=== PATIENT | female | born 1970 | race American Indian/Alaskan Native ===

== ENCOUNTER 2017-01-16 11:51 | Outpatient (CLI) | payer OTHER ==
--- NOTE | 2017-01-16 15:37 | Mammography Report ---
BILATERAL DIGITAL SCREENING MAMMOGRAM with CAD: 01/16/17 11:51:00 CLINICAL: Routine screening. COMPARISON:07/17/15 and 06/08/14 FINDINGS: There are scattered areas of fibroglandular density. No mass, architectural distortion or suspicious calcifications. IMPRESSION: No mammographic evidence of malignancy. BI-RADS CATEGORY: 2 -- Benign RECOMMENDATION: Routine mammographic screening in one year. COMMENT: Patient follow-up letters are generated by our [employer] application.
== END 2017-01-16 11:52 | disposition home or self-care (01) ==
LOC: MAMMO 11:51
PROVIDERS: ATTEND Obstetrics & Gynecology
DX: Z12.31 Encounter for screening mammogram for malignant neoplasm of breast (principal)
CPT/HCPCS: 77067; G0202

== ENCOUNTER 2019-04-05 06:07 | Observation (INO) | payer BC, OTHER ==
[2019-04-01 11:54] LABS: Basophils % (Auto) 0.6 % (0.0-1.8); Eosinophils # (Auto) 0.2 K/mm3 (0.0-0.4); Eosinophils % (Auto) 2.6 % (0.0-4.3); Hematocrit 41.3 % (30.3-42.9); Hemoglobin 13.6 gm/dl (10.1-14.3); Lymphocytes # (Auto) 3.4 K/mm3 (1.2-5.4); Lymphocytes % (Auto) 45.3 % (13.4-35.0); Mean Corpuscular HGB Conc 33 % (30-34); Mean Corpuscular Volume 85 fl (79-97); Monocytes # (Auto) 0.4 K/mm3 (0.0-0.8); Monocytes % (Auto) 5.8 % (0.0-7.3); Platelet Count 277 K/mm3 (140-440); Red Blood Count 4.86 M/mm3 (3.65-5.03); Red Cell Distribution Width 13.5 % (13.2-15.2)
--- NOTE | 2019-04-01 12:41 | Anesthesia Consultation ---
Anesthesia Consult and Med Hx Date of service: 04/01/19 - Airway Anesthetic Teeth Evaluation: Good ROM Head & Neck: Adequate Mental/Hyoid Distance: Adequate Mallampati Class: Class II Intubation Access Assessment: Good - Pulmonary Exam CTA: Yes - Cardiac Exam Cardiac Exam: RRR - Pre-Operative Health Status ASA Pre-Surgery Classification: ASA2 Proposed Anesthetic Plan: General Nerve Block: TAP Block - Pulmonary Hx Smoking: No - Central Nervous System Hx Psychiatric Problems: No - Other Systems Hx Alcohol Use: Yes (Occas) Hx Cancer: No
--- NOTE | 2019-04-04 10:32 | History and Physical Report ---
History of Present Illness Date of examination: 04/01/19 History of present illness: States she has intermittent pelvic pain and pressure along with painful sex. She presents now for definitive therapy in the form of hysterectomy with removal of both fallopian tubes and ovaries. Past History : 1 Living Children: 0 Elect. 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 of genital herpes: yes Partner hx. of genital herpes: no Rash/viral illness since LMP: no Hx of STD: HSV Active Medications (reviewed today): MIRENA (52 MG) 20 MCG/24HR INTRAUTERINE INTRAUTERINE DEVICE (LEVONORGESTREL) Current Allergies (reviewed today): No known allergies Past Medical History: history of abnormal EKG cleared by her systems mgr Dr. Lopez (03/2019) Past Surgical History: Reviewed history from 08/30/2010 and no changes required: positive Cholecystectomy Myomectomy Appendectomy Family History Summary: Reviewed history Last on 12/24/2018 and no changes required:04/04/2019 Other family member - Has No Family History of Biliary Tract Cancer - Entered On: 01/16/2017 Other family member - Has No Family History of Breast Cancer - Entered On: 01/16/2017 Other family member - Has No Family History of Brain Cancer - Entered On: 01/16/2017 Other family member - Has No Family History of Colon Cancer - Entered On: 01/16/2017 Other family member - Has No Family History of DVT/PE on OCP - Entered On: 01/16/2017 Other family member - Has No Family History of Kidney/Urinary Tract Cancer - Entered On: 01/16/2017 Other family member - Has No Family History of Ovarvian Cancer - Entered On: 01/16/2017 Other family member - Has No Family History of Pancreatic Cancer - Entered On: 01/16/2017 Other family member - Has No Family History of Stomach Cancer - Entered On: 01/16/2017 Other family member - Has No Family History of Small Bowel Cancer - Entered On: 01/16/2017 Other family member - Has No Family History of Uterine Cancer - Entered On: 01/16/2017 Father (biol.) - Has Family History of Lung Cancer - Entered On: 11/05/2018 General Comments - FH: none No Family History of Breast Cancer No Family History of Colon Cancer No Family History of Ovarvian Cancer No Family History of DVT/PE on OCP Social History: Reviewed history from 01/02/2017 and no changes required: Patient is single Smoking History: Patient has never smoked. Risk Factors: Smoked Tobacco Use: Never smoker Smokeless Tobacco Use: Never Passive smoke exposure: no Drug use: no HIV high-risk behavior: no Alcohol use: yes Exercise: yes Seatbelt use: 100 % PAP Smear History: Date of Last PAP Smear: 11/09/2018 Mammogram History: Date of Last Mammogram: 04/02/2018 Previous Tobacco Use: Signed On - 12/24/2018 Smoked Tobacco Use: Never smoker Smokeless Tobacco Use: Never Passive smoke exposure: no Drug use: no HIV high-risk behavior: no Caffeine use: <1 drinks per day Previous Alcohol Use: Signed On - 12/24/2018 Alcohol use: yes Type: occ Drinks per day: social Exercise: yes Times per week: 3 Type of Exercise: kick boxing Seatbelt use: 100 % PAP Smear History: Date of Last PAP Smear: 11/09/2018 Mammogram History: Date of Last Mammogram: 04/02/2018 Review of Systems General Denies fever, chills, sweats, anorexia, fatigue, weakness, malaise, weight loss and sleep disorder. Complains of pelvic pain, painful sex and painful periods. Denies vaginal discharge, incontinence, dysuria, hematuria, urinary frequency, amenorrhea, menorrhagia, abnormal vaginal bleeding, genital sores, decreased libido, , urinary urgency, hot flashes, vaginal dryness, vaginal itching and vaginal odor. CV Denies chest pains, palpitations, syncope, dyspnea on exertion, orthopnea, PND and peripheral edema. Resp Denies cough, dyspnea at rest, excessive sputum, hemoptysis, wheezing and pleurisy. GI Denies nausea, vomiting, diarrhea, constipation, change in bowel habits, abdominal pain, melena, hematochezia, jaundice, gas/bloating, indigestion/heartburn, dysphagia and odynophagia. Endo Denies cold intolerance, heat intolerance, polydipsia, polyphagia, polyuria and unusual weight change. Breast Denies left breast lump, right breast lump, nipple discharge, bloody discharge from nipple, breast pain, abnormal mammogram and breast enlargement. MS Denies back pain, joint pain, joint swelling, muscle cramps, muscle weakness, stiffness, arthritis, sciatica, restless legs, leg pain at night and leg pain with exertion. Derm Denies rash, itching, dryness and suspicious lesions. Neuro Denies paralysis, paresthesias, headache, seizures, tremors, vertigo, tr ansient blindness, frequent falls, frequent headaches and difficulty walking. Psych Denies depression, anxiety, irritability and mood swings. Eyes Denies blurring, diplopia, irritation, discharge, vision loss, eye pain and photophobia. ENT Denies earache, ear discharge, tinnitus, decreased hearing, nasal congestion, nosebleeds, sore throat and hoarseness. Allergy Denies urticaria, allergic rash, hay fever and recurrent infections. Heme Denies abnormal bruising, bleeding and enlarged lymph nodes. Physical Exam Appearance: well developed, well nourished, no acute distress Other Exams Lungs: no rales, rhonchi, or wheezes Heart: S1, S2, no murmur, rub, or gallop Abdomen: soft, non-tender, no masses, Genitourinary Exam Pelvis: deferred until EUA Impression & Recommendations: Problem # 1: Pelvic and perineal pain (ICD-789.00) (NAM11-C61.2) Risks, benefits, complications, consequences and alternatives for these procedures were discussed with patient, including but not limited to the risks of bleeding, infection, injury to bowel, bladder, ureters or major vascular injury. It was extensively explained to her that her pain may persist, recur or change in nature due to the difficulty with diagnosis chronic pelvic pain or development of adhesions. She declined other treatment options at this time. Questions were encouraged and answered. Consents were reviewed and signed. Pre- op instructions given. Patient voiced understanding and desires to proceed with the above procedures Problem # 2: Fibroids of uterus; Intramural (ICD-218.1) (JUE34-H22.1) Her updated medication list for this problem includes: Mirena (52 Mg) 20 Mcg/24hr Intrauterine Intrauterine Device (Levonorgestrel) ..... Insert with next Orders: Ofc Vst Est 42925 ([id number]) Diagnosis explained to patient . Discussed with patient various medical, surgical and radiological therapies common for treatment including, but not limited to, myomectomy, hysterectomy and uterine artery embolization. Discussed risks and benefits of laparotomy, laparoscopy, vaginal and robotic a ssisted approaches for hysterectomies. Patient desires definitive treatment in the form of robot assisted laparoscopic total hysterectomy with removal of both fallopian tubes and ovaries The risks and alternatives for this surgery were reviewed with the patient. She was informed of the risks of the surgery including, but not limited to, pain, infection, bleeding possibly heavy enough to require a blood transfusion with associated risks of infections (hepatitis and HIV) and transfusion reactions, possible damage to bowel, bladder or ureter(s). Patient understands that this surgery with make her sterile. Indications to abort a robotic/laparoscopic procedure and perform an open procedure were explained. Patient understands if her ovaries are removed she will become menopausal. Questions answered. Consent reviewed and signed The patient was instructed/informed the following: The normal length of hospital stay for this procedure. Nothing to eat or drink after midnight the evening prior to surgery. Clear liquids the day before surgery. Pre-op instruction sheets given. Wound care instructions given. Medications and Allergies Allergies Allergy/AdvReac Type Severity Reaction Status Date / Time No Known Allergies Allergy Unverified 03/28/19 17:46 Home Medications Medication Instructions Recorded Confirmed Last Taken Type No Known Home Medications [No 03/28/19 03/28/19 Unknown History Reported Home Medications] Active Meds: Active Medications Lactated Ringer's (Lactated Ringers) 1,000 mls @ 100 mls/hr IV DIRECT SHELBY Cefazolin Sodium (Ancef/Sterile Water 2 Gm/20 Ml) 2 gm in 20 mls @ 80 mls/hr IV PREOP NR; Protocol Exam Vital Signs Temp Pulse Resp BP Pulse Ox 97.3 F L 82 20 130/92 97 04/01/19 11:37 04/01/19 11:37 04/01/19 11:37 04/01/19 11:37 04/01/19 11:37 Results - Labs 04/01/19 11:32 Assessment and Plan - Patient Problems (1) Pelvic pain in female Status: Acute (2) Dyspareunia in female Status: Acute (3) Dysmenorrhea Status: Acute (4) Fibroid, uterine Status: Acute
[~2019-04-05 06:07] MED LIST: ANCEF/STERILE WATER 2 GM/20 ML 2 GM/20 ML SYRINGE IV NR; LACTATED RINGERS 1,000 ML IV SCH; NEURONTIN PO NR; SUBLIMAZE IV ONE; SUBLIMAZE IV PRN; VERSED IV NR
[2019-04-05] MEDS ORDERED: NACL BACTERIOSTATIC INFILTRATI ONE (06:18)
[2019-04-05] MEDS: LACTATED RINGERS 1,000 ML IV SCH ×2 (06:50→23:43)
[2019-04-05] MEDS ORDERED: DECADRON ONE ×2 (07:23→08:24)
[2019-04-05] MEDS ORDERED: MARCAINE-EPI 0.25%-1:200,000 INFILTRATI ONE (07:23)
[2019-04-05] MEDS ORDERED: NEOSPORIN GU IR ONE ×2 (07:25→08:47)
[2019-04-05] MEDS ORDERED: DIPRIVAN 10 MG/ML IV ONE (07:28)
[2019-04-05] MEDS ORDERED: DILAUDID ONE (07:28)
[2019-04-05] MEDS ORDERED: XYLOCAINE MPF 2% ONE (07:29)
[2019-04-05] MEDS ORDERED: ZEMURON IV ONE (07:30)
[2019-04-05] MEDS ORDERED: DILAUDID IV PRN (07:39)
--- NOTE | 2019-04-05 07:39 | Anesthesia Day of Surgery ---
Anesthesia Day of Surgery - Day of Surgery Patient Examined: Yes Patient H&P Reviewed: Yes Patient is NPO: Yes
[2019-04-05] MEDS ORDERED: CALCIUM CHLORIDE IV ONE ×2 (07:45→08:49)
[2019-04-05] MEDS ORDERED: RECOTHROM TP ONE ×2 (07:46→08:48)
[2019-04-05] MEDS ORDERED: ZOFRAN ONE (08:24)
[2019-04-05] MEDS ORDERED: PHENYLEPHRINE/NS Syringe 1,000 MCG/10 ML IV ONE ×2 (08:24→10:25)
[2019-04-05] MEDS ORDERED: NACL 0.9% IR ONE (08:48)
[2019-04-05] MEDS ORDERED: Vasostrict ONE (08:58)
[2019-04-05] MEDS ORDERED: NACL 0.9% 100 ML ONE (08:58)
[2019-04-05] MEDS ORDERED: METHYLENE BLUE ONE (09:29)
[2019-04-05] MEDS ORDERED: NACL 0.9% IV ONE (09:40)
[2019-04-05] MEDS ORDERED: Vasostrict IM ONE (09:40)
[2019-04-05] MEDS ORDERED: METHYLENE BLUE IRRIGATION ONE (09:41)
[2019-04-05] MEDS ORDERED: ROBINUL ONE (10:25)
[2019-04-05] MEDS ORDERED: BLOXIVERZ ONE (10:25)
--- NOTE | 2019-04-05 11:00 | Operative Report ---
Operative Report Operative Report: Date: 04/05/2019 Preoperative diagnosis: 1. Pelvic pain 2. Dysmenorrhea 3. Dyspareunia 4. Uterine fibroids Postoperative diagnosis: 1. Pelvic pain 2. Dysmenorrhea 3. Dyspareunia 4. Uterine fibroids 5. Endometriosis 6. Pelvic Adhesions Procedure: 1. Robotic-assisted laparoscopic total hysterectomy with bilateral salpingo-oophorectomy and lysis of adhesions Surgeon: Sandra Medel MD Can Intake Worker: Magalis lA, certified ethical hacker Anesthesiologist: Dr. Roz Woo Anesthesia: General endotracheal anesthesia EBL: Approximately 100 mL Findings: Exam under anesthesia was unremarkable. Uterus is sounded to 12 cm. Large pedunculated fundal fibroid. Small focus of endometriosis noted on the left posterior pelvic sidewall. Grossly normal ovaries and tubes. Omental adhesions to the anterior abdominal wall. Procedure: Patient was taken to the OR and placed in the supine position. General anesthesia was induced and an oral gastric tube was placed. Her neck and head were placed on foam support. Foam eye protection with goggles were secured in place. Then foam face protection was placed and secured. Foam shoulder pads were then positioned on her shoulders for Trendelenburg positioning. She was then placed in dorsolithotomy position. Exam under anesthesia as above. The abdomen and vagina were then prepped and draped in the usual sterile fashion. Timeout was performed. A Cesar catheter was inserted into the bladder with drainage of clear yellow urine. The operative speculum was introduced into the vagina and the anterior lip of the cervix was grasped with single-toothed tenaculum. The uterus was sounded to 12 cm. The cervix was progressively dilated to allow the large V care uterine manipulator. The bulb of the manipulator was inflated and the speculum and tenaculum were removed. The cup of the manipulator was placed around the cervix and the blue occluder of the manipulator was properly positioned in the vagina. A laparotomy sponge that was saturated with a solution of polymyxin and saline was placed in the vagina to ensure pneumoperitoneum. Sterile gloves were placed and attention was turned to the abdomen. A 12 mm vertical supraumbilical incision was made approximately 10 cm superior to the elevated fundus of the uterus. A 10 mm trocar with the laparoscope and camera attached was introduced through this incision under direct visualization. The abdomen was insufflated. No obvious bowel, bladder, ureteral, or major vascular injury was noted. The patient was then placed in steep Trendelenburg position and the following trochars were placed under direct visualization: 8 mm robotic trochars were placed through incisions made in the bilateral midclavicular lower abdominal region approximately 10 cm lateral and approximately 2 cm below the midline incision, and a 5 mm trocar was placed through an incision made in the right lower lateral pelvis approximately 2 cm superior to the iliac crest. The 10 mm laparoscope was then replaced by a 5 mm laparoscope that was placed through the 5 millimeter lateral trocar. The 12 mm trocar was then removed in the Manuel Goldman fascial closure device was placed through the incision and a 0 Vicryl was placed through the fascia. Once the suture was secured the 12 mm trocar was reintroduced. Once the trochars were in the appropriate positions, the the da Sarah robot system was engaged. The EndoShears and bipolar device was placed through the 8 mm trochars and positioned then attention was turned to the console. The uterus was elevated. Then the utero-ovarian ligaments were clamped. cauterized and incised bilateral ly using 30 W of energy. Then the round ligaments were clamped, cauterized and incised bilaterally. The anterior leaf of the broad ligament was elevated and careful blunt and sharp dissection the bladder flap was created and dissected away from the lower uterine segment and cervix. The posterior leaf of the broad ligament was dissected away from the uterine vessels. To improve visualization the decision was made to remove the fundal fibroid. 15 mL of Pitressin, 20 units in 100 mL's of normal saline, was infused into the base of the fibroid. Fibroid was then excised. Using a V LOC through the fibroid it was attached to the anterior abdominal wall away from the operative field. 120 mL's of methylene blue and saline infused into the bladder to verify its location. The bladder was further dissected away from the lower uterine segment and cervix. Once location was verified and no injury was noted to saline with methylene blue was released into the Cesar. The cup of the uterine manipulator was palpated both anteriorly and posteriorly. Course of the ureters was visualized and was confirmed to be away from the operative field. The uterine vessels were then clamped and cauterized bilaterally. Blanching of the uterus was then noted. Attention was again turned to the anterior lower uterine segment and the bladder was confirmed to be away from the operative field. Then attention was turned again to the posterior where the cup of the manipulator was palpated and a colpotomy was performed down to the cup. The incision was extended in the lateral position the uterine vessels that were again clamped and cauterized and incised. Continuing along the cup of the manipulator in a circumferential manner the colpotomy was completed. The uterus and cervix were then removed through the vaginal incision. The pelvis was irrigated with warm normal saline. The fibroid was then removed along with the suture through the vagina. Then attention was turned to the adnexa. Once the course of the ureters were noted to be away from the operative field, the right tube and ovary were elevated and the infundibulopelvic ligament was clamped cauterized and incised. It was released and removed through the vagina. The same procedure was performed on the left tube and ovary. The pelvis was again irrigated with warm normal saline. Hemostasis was noted. A moist laparotomy sponge was replaced in the vagina to maintain pneumoperitoneum. The vagina cuff was reapproximated using V LOC 180 suture in a simple running stitch. Then a J stitch was performed to secure the suture. Again the pelvis was copiously irrigated with polymixin in warm normal saline. The laparotomy sponge was removed from the vagina. No bowel, bladder, ureteral or major vascular injury was noted. Once hemostasis was noted, platelet rich plasma was applied to the operative field to ensure hemostasis. Then platelet poor plasma was applied to the operative field to decrease formation of adhesions. Again hemostasis was noted. Then the instruments were removed, the robot was disengaged. The 10 mm trocar was removed and the fascia was ligated with the 0 Vicryl suture that was placed at the beginning of the procedure. The patient was taken out of Trendelenburg position, the abdomen was desufflated, the remaining trochars were removed. Incisions were reapproximated using 4-0 Monocryl in a subcuticular manner. Incisions were infused with half percent Marcaine without epinephrine and Surgiseal was placed over the incisions. The vagina was then inspected, no bleeding was noted and clear yellow urine was draining into the Cesar bag from the bladder at the end of the procedure. Patient was taken to recovery room in stable condition.
[2019-04-05] MEDS ORDERED: TORADOL ONE (11:12)
[2019-04-05] MEDS: TORADOL IV NR (11:20)
[2019-04-05] MEDS ORDERED: TYLENOL PR PRN (12:08)
[2019-04-05] MEDS ORDERED: ZOFRAN IV PRN (12:08)
[2019-04-05] MEDS ORDERED: ZOFRAN ODT PO PRN (12:08)
[2019-04-05] MEDS ORDERED: MORPHINE IV PRN (12:08)
[2019-04-05] MEDS ORDERED: REGLAN PO PRN (12:08)
[2019-04-05] MEDS ORDERED: REGLAN IV PRN (12:08)
--- NOTE | 2019-04-05 12:56 | Post Anesthesia Evaluation ---
- Post Anesthesia Evaluation Patient Participated: Yes Airway Patent: Yes Stable Respiratory Function: Yes Nausea/Vomiting: No Temp > 96.8F: Yes Pain Manageable: Yes Adequeate Hydration: Yes Anesthesia Complications: No
[2019-04-05] MEDS: MORPHINE IV PRN ×2 (15:20→20:04)
[2019-04-05] MEDS: ANCEF/NS 1 GM/50 ML 1 GM/50 ML BAG IV SCH (16:20)
[2019-04-05] MEDS: TORADOL IV SCH ×2 (17:25→23:50)
--- NOTE | 2019-04-05 21:00 | Progress Note ---
Assessment and Plan Operative findings and procedure explained. Elevated BP and heart rate noted. According to RN patient was in pain with initial VSs. She was given MSO4 as ordered. She had 4 visitors in her room when the last set of VSs were taken. - Patient Problems (1) Pelvic pain in female Current Visit: No Status: Acute (2) Dyspareunia in female Current Visit: No Status: Acute (3) Dysmenorrhea Current Visit: No Status: Acute (4) Fibroid, uterine Current Visit: No Status: Acute Subjective Date of service: 04/05/19 Patient Reports: Positive: still having pain, tolerating liquids well, afebrile Objective Vital Signs - 12hr 04/05/19 04/05/19 04/05/19 10:40 10:45 10:50 Temperature 97.6 F Pulse Rate 90 90 92 H Respiratory 17 17 19 Rate Blood Pressure 138/88 140/92 143/98 Blood Pressure [Left] O2 Sat by Pulse 98 98 98 Oximetry 04/05/19 04/05/19 04/05/19 10:55 11:10 11:20 Temperature 97.4 F L Pulse Rate 93 H 93 H Respiratory 18 17 15 Rate Blood Pressure 147/96 147/96 Blood Pressure [Left] O2 Sat by Pulse 99 98 Oximetry 04/05/19 04/05/19 04/05/19 11:24 11:40 11:49 Temperature 97.7 F Pulse Rate 96 H 98 H 99 H Respiratory 17 16 Rate Blood Pressure 145/95 167/104 Blood Pressure 167/104 [Left] O2 Sat by Pulse 98 100 100 Oximetry 04/05/19 04/05/19 04/05/19 12:39 16:08 20:38 Temperature 98.1 F 97.7 F 98.4 F Pulse Rate 102 H 114 H 114 H Respiratory 18 18 20 Rate Blood Pressure 154/104 148/96 155/100 Blood Pressure [Left] O2 Sat by Pulse 98 97 96 Oximetry - General physical appearance well developed, well nourished - Respiratory normal expansion, normal respiratory effort, clear to auscultation - Abdomen soft, bowel sounds normal - Neurologic normal coordination, normal sensation - Psychiatric oriented to time, oriented to person, oriented to place, speech is normal, memory intact - Labs 04/01/19 11:32
[2019-04-05 21:34] LABS: Hematocrit 39.7 % (30.3-42.9)
--- NOTE | 2019-04-05 22:16 | Event Note ---
Date: 04/05/19 EKG and H/H noted, patient informed, denies CP and SOB. Has good UO. RN instrd to recheck VSS ~1h and call to
--- NOTE | 2019-04-05 23:46 | Event Note ---
Date: 04/05/19 BP decreased however still with tachycardia uncertain etiology, states she experienced same last year. Again no complaints, UO good, clear yellow urine, no vaginal bleeding. hgb 13 at 2100. Will consult hospitalist and transfer to telemetry. Plan of care discussed with patient, she voiced understanding.
--- NOTE | 2019-04-06 00:22 | Consultation ---
<RUTH CARR - Last Filed: 04/06/19 00:18> History of Present Illness - Reason for Consult Consult date: 04/06/19 Medical management for elevated heart rate Requesting physician: BALAJI GARCES - History of Present Illness Pt is a 49 year old female with no prior medical history except for uterine fibroid who was admitted for an elective total hysterectomy today. Pt developed elevated heart rate after the procedure and hospitalist is consulted for evaluation. Pt was seen in room, she was A&Ox4, able to provide medical history, she reports a h/o elevated HR and chest pressure for which she saw a quantitative equity head 1 year ago and had a stress test which was negative, she is not currently taking any medications at home, she denies family history of heart disease, denies smoking history. Past History Past Medical History: other (uterine fibroid) Past Surgical History: hysterectomy (done today) Social history: no significant social history Family history: no significant family history Medications and Allergies Allergies Allergy/AdvReac Type Severity Reaction Status Date / Time No Known Allergies Allergy Unverified 03/28/19 17:46 Home Medications Medication Instructions Recorded Confirmed Last Taken Type No Known Home Medications [No 03/28/19 03/28/19 Unknown History Reported Home Medications] Active Meds: Active Medications Acetaminophen (Tylenol) 650 mg PO Q6H SHELBY Stop: 04/06/19 08:01 Acetaminophen (Tylenol) 650 mg CA Q6H PRN PRN Reason: Pain MILD(1-3)/Fever >100.5/WHELAN Lactated Ringer's (Lactated Ringers) 1,000 mls @ 100 mls/hr IV DIRECT SHELBY Last Admin: 04/05/19 23:43 Dose: 100 mls/hr Documented by: Cefazolin Sodium (Ancef/Ns 1 Gm/50 Ml) 1 gm in 50 mls @ 100 mls/hr IV Q8H SHELBY; Protocol Stop: 04/06/19 00:29 Last Admin: 04/05/19 16:20 Dose: 100 mls/hr Documented by: Ketorolac Tromethamine (Toradol) 30 mg IV ONCE NR Stop: 04/10/19 12:14 Last Admin: 04/05/19 11:20 Dose: 30 mg Documented by: Ketorolac Tromethamine (Toradol) 30 mg IV Q6HR SHELBY Stop: 04/06/19 12:01 Last Admin: 04/05/19 23:50 Dose: 30 mg Documented by: Metoclopramide HCl (Reglan) 10 mg IV Q6H PRN PRN Reason: Nausea And Vomiting Metoclopramide HCl (Reglan) 10 mg PO Q6H PRN PRN Reason: Nausea And Vomiting Morphine Sulfate (Morphine) 2 mg IV Q4H PRN PRN Reason: Pain, Moderate (4-6) Morphine Sulfate (Morphine) 4 mg IV Q4H PRN PRN Reason: Pain , Severe (7-10) Last Admin: 04/05/19 20:04 Dose: 4 mg Documented by: Ondansetron HCl (Zofran) 4 mg IV Q8H PRN PRN Reason: N/V unrelieved by Reglan Ondansetron HCl (Zofran Odt) 4 mg PO Q8H PRN PRN Reason: Nausea And Vomiting Oxycodone/Acetaminophen (Percocet 5/325) 2 tab PO Q6H PRN PRN Reason: Pain, Moderate (4-6) Pantoprazole Sodium (Protonix) 40 mg IV QDAY [facility] Review of Systems Genitourinary Female: other (mild surgical site pain) Exam - Constitutional Vitals: Temp Pulse Resp BP Pulse Ox 98.3 F 111 H 18 122/79 93 04/05/19 23:08 04/05/19 23:08 04/05/19 23:08 04/05/19 23:08 04/05/19 23:08 General appearance: Present: no acute distress - EENT Eyes: Present: EOM intact ENT: hearing intact - Neck Neck: Present: normal ROM - Respiratory Respiratory effort: normal Respiratory: bilateral: CTA - Cardiovascular Rhythm: regular Heart Sounds: Present: S1 & S2 - Extremities Extremities: no ischemia, No edema Peripheral Pulses: within normal limits - Abdominal General gastrointestinal: Present: tender, non-distended Female genitourinary: Present: deferred - Rectal Rectal Exam: deferred - Integumentary Integumentary: Present: warm, dry - Musculoskeletal Musculoskeletal: strength equal bilaterally - Psychiatric Psychiatric: cooperative - Neurologic Neurologic: moves all extremities Results - Labs CBC & Chem 7: 04/05/19 21:18 Assessment and Plan 1. s/p Robotic assisted total hysterectomy POD#0 2. H/o uterine fibroid 3. H/o elevated heart rate 4. Surgical site pain Plan: Pt is transferred to Telemetry for heart rate monitoring Continue cardiac monitoring Continue post surgical care Continue Pain control PRN Start Lopressor 25 mg BID for elevated HR Will consider consulting cardiology if heart rate remains elevated <JEFF RIOS - Last Filed: 04/06/19 01:24> Medications and Allergies Active Meds: Active Medications Acetaminophen (Tylenol) 650 mg PO Q6H SHELBY Stop: 04/06/19 08:01 Last Admin: 04/06/19 01:10 Dose: Not Given Documented by: Acetaminophen (Tylenol) 650 mg CA Q6H PRN PRN Reason: Pain MILD(1-3)/Fever >100.5/WHELAN Lactated Ringer's (Lactated Ringers) 1,000 mls @ 100 mls/hr IV DIRECT SHELBY Last Admin: 04/05/19 23:43 Dose: 100 mls/hr Documented by: Ketorolac Tromethamine (Toradol) 30 mg IV ONCE NR Stop: 04/10/19 12:14 Last Admin: 04/05/19 11:20 Dose: 30 mg Documented by: Ketorolac Tromethamine (Toradol) 30 mg IV Q6HR SHELBY Stop: 04/06/19 12:01 Last Admin: 04/05/19 23:50 Dose: 30 mg Documented by: Metoclopramide HCl (Reglan) 10 mg IV Q6H PRN PRN Reason: Nausea And Vomiting Metoclopramide HCl (Reglan) 10 mg PO Q6H PRN PRN Reason: Nausea And Vomiting Morphine Sulfate (Morphine) 2 mg IV Q4H PRN PRN Reason: Pain, Moderate (4-6) Morphine Sulfate (Morphine) 4 mg IV Q4H PRN PRN Reason: Pain , Severe (7-10) Last Admin: 04/05/19 20:04 Dose: 4 mg Documented by: Ondansetron HCl (Zofran) 4 mg IV Q8H PRN PRN Reason: N/V unrelieved by Reglan Ondansetron HCl (Zofran Odt) 4 mg PO Q8H PRN PRN Reason: Nausea And Vomiting Oxycodone/Acetaminophen (Percocet 5/325) 2 tab PO Q6H PRN PRN Reason: Pain, Moderate (4-6) Pantoprazole Sodium (Protonix) 40 mg IV QDAY SHELBY Exam - Constitutional Vitals: Temp Pulse Resp BP Pulse Ox 98.8 F 109 H 16 132/82 92 04/06/19 00:25 04/06/19 00:25 04/06/19 00:25 04/06/19 00:25 04/06/19 00:25 Results - Labs CBC & Chem 7: 04/05/19 21:18 Assessment and Plan 49-year-old status post hysterectomy consulted for tachycardia. She had a history of tachycardia that started one year ago, at that time she also had chest pain, she had a stress test which was negative. Tachycardia persisted and she was started on Coreg by her quantitative equity head however the patient discontinue her Coreg in July of this year. She stated that her heart rate has been fine to discontinuation. Patient stated that she was in pain today after surgery, she was trying to hold off on not taking her pain medication that often, she was noted to have tachycardia and worsening hypertension.Tachycardia has improved fron 120s to low 100s after pain medication. She is asymptomatic . Hold off on oral Lopressor for now, monityor for now, consult cardiology for restart of coreg.
[2019-04-06] MEDS: TYLENOL PO SCH ×3 (01:10→09:46)
[2019-04-06] MEDS: ANCEF/NS 1 GM/50 ML 1 GM/50 ML BAG IV SCH (01:36)
[2019-04-06] MEDS: TORADOL IV SCH (05:32)
[2019-04-06 08:04] LABS: Hematocrit 37.3 % (30.3-42.9); Hemoglobin 12.2 gm/dl (10.1-14.3)
[2019-04-06 09:12] VITALS: BP 135/82
[2019-04-06] MEDS: LACTATED RINGERS 1,000 ML IV SCH (09:46)
[2019-04-06] MEDS ORDERED: PROTONIX IV SCH (10:00)
[2019-04-06] MEDS ORDERED: PERCOCET 5/325 PO PRN (11:06)
--- NOTE | 2019-04-06 12:16 | Consultation ---
<GASPER MARAVILLA - Last Filed: 04/06/19 12:35> History of Present Illness Consult date: 04/06/19 Consult reason: tachycardia History of present illness: This is a 49-year old woman who is 1 day post laparoscopic total hysterectomy. A cardiac consultation has been requested for sinus tachycardia post operatively. Patient gives a history of palpitations previously managed with carvedilol. Patient reports she stopped taking carvedilol several months ago and had no furt her palpitations. Patient denies chest pain, unusual shortness of breath and palpitations. 12 lead ECG is sinus tachycardia, rate 107. Past History Past Medical History: other (uterine fibroid) Past Surgical History: hysterectomy (done today) Social history: no significant social history Family history: no significant family history Medications and Allergies Allergies Allergy/AdvReac Type Severity Reaction Status Date / Time No Known Allergies Allergy Unverified 03/28/19 17:46 Home Medications Medication Instructions Recorded Confirmed Last Taken Type Ibuprofen [Motrin 800 MG tab] 800 mg PO TID PRN #30 tablet 04/06/19 Unknown Rx oxyCODONE /ACETAMINOPHEN [Percocet 1 - 2 tab PO Q4HR PRN #30 tablet 04/06/19 Unknown Rx 5/325 mg] Active Meds: Active Medications Acetaminophen (Tylenol) 650 mg ID Q6H PRN PRN Reason: Pain MILD(1-3)/Fever >100.5/WHELAN Lactated Ringer's (Lactated Ringers) 1,000 mls @ 100 mls/hr IV DIRECT SHELBY Last Admin: 04/06/19 09:46 Dose: 100 mls/hr Documented by: Ketorolac Tromethamine (Toradol) 30 mg IV ONCE NR Stop: 04/10/19 12:14 Last Admin: 04/05/19 11:20 Dose: 30 mg Documented by: Metoclopramide HCl (Reglan) 10 mg IV Q6H PRN PRN Reason: Nausea And Vomiting Metoclopramide HCl (Reglan) 10 mg PO Q6H PRN PRN Reason: Nausea And Vomiting Morphine Sulfate (Morphine) 2 mg IV Q4H PRN PRN Reason: Pain, Moderate (4-6) Morphine Sulfate (Morphine) 4 mg IV Q4H PRN PRN Reason: Pain , Severe (7-10) Last Admin: 04/05/19 20:04 Dose: 4 mg Documented by: Ondansetron HCl (Zofran) 4 mg IV Q8H PRN PRN Reason: N/V unrelieved by [place] Ondansetron HCl (Zofran Odt) 4 mg PO Q8H PRN PRN Reason: Nausea And Vomiting Oxycodone/Acetaminophen (Percocet 5/325) 2 tab PO Q6H PRN PRN Reason: Pain, Moderate (4-6) Pantoprazole Sodium (Protonix) 40 mg IV QDAY SHELBY Last Admin: 04/06/19 09:47 Dose: 40 mg Documented by: Physical Examination Vital Signs Temp Pulse Resp BP Pulse Ox 97.3 F L 82 20 130/92 97 04/01/19 11:37 04/01/19 11:37 04/01/19 11:37 04/01/19 11:37 04/01/19 11:37 General appearance: no acute distress HEENT: Positive: PERRL Neck: Positive: trachea midline Cardiac: Positive: Tachycardia Lungs: Positive: Normal Breath Sounds Neuro: Positive: Grossly Intact Extremities: Absent: edema Results 04/06/19 07:32 CBC 04/05/19 04/06/19 Range/Units 21:18 07:32 Hgb 13.0 12.2 (10.1-14.3) gm/dl Hct 39.7 37.3 (30.3-42.9) % Assessment and Plan s/p Total hysterectomy Reflex sinus tachycardia No cardiac workup indicated. Sinus tachycardia is in response to post operative pain. <HUMBERTO WILSON - Last Filed: 04/06/19 18:06> Physical Examination Vital Signs Temp Pulse Resp BP Pulse Ox 97.3 F L 82 20 130/92 97 04/01/19 11:37 04/01/19 11:37 04/01/19 11:37 04/01/19 11:37 04/01/19 11:37 Results 04/06/19 07:32 CBC 04/05/19 04/06/19 Range/Units 21:18 07:32 Hgb 13.0 12.2 (10.1-14.3) gm/dl Hct 39.7 37.3 (30.3-42.9) % Assessment and Plan I have seen and evaluated the patient and agree with the assessment and plan. Patient is post oeprative total hysterectomy. Patient has noted sinus tachycardia on telemetry - this is physiologic secondary to recent surgery. Tachycardia will resolve as the patient recovers from surgery.
[2019-04-06] MEDS: TORADOL IV NR (12:59)
--- NOTE | 2019-04-06 13:10 | Discharge Summary ---
Providers - Providers Date of Admission: 04/05/19 11:06 Date of discharge: 04/06/19 Attending physician: BALAJI GARCES 04/05/19 23:13 Consult to Physician [CONS] Urgent Comment: Consulting Provider: TIMOTHY DANIEL Physician Instructions: Reason For Exam: tachycardia 04/06/19 01:23 Consult to Physician [CONS] Routine Comment: Consulting Provider: MARIANA REGALADO Physician Instructions: Reason For Exam: tachycardia Primary care physician: FILI STOVER Hospitalization Condition: Good Procedures: RATH/BSO/CHRISTA Hospital course: Developed tachycardia postoperative Cleared by cardiology - Discharge Diagnoses (1) Pelvic pain in female Status: Resolved (2) Dyspareunia in female Status: Resolved (3) Dysmenorrhea Status: Resolved (4) Fibroid, uterine Status: Resolved Core Measure Documentation - Palliative Care Palliative Care/ Comfort Measures: Not Applicable - Core Measures Any of the following diagnoses?: none Exam - Constitutional Vitals: Temp Pulse Resp BP Pulse Ox 98.6 F 95 H 16 135/82 92 04/06/19 09:07 04/06/19 09:07 04/06/19 09:07 04/06/19 09:07 04/06/19 09:07 General appearance: Present: no acute distress - Respiratory Respiratory effort: normal Respiratory: bilateral: CTA - Extremities Extremities: no ischemia, No edema - Abdominal General gastrointestinal: Present: soft, non-tender, non-distended, normal bowel sounds Female genitourinary: Present: deferred - Integumentary Integumentary: Present: clear, warm, dry (incisions c/d/i, no s/s infection) - Musculoskeletal Musculoskeletal: strength equal bilaterally - Psychiatric Psychiatric: appropriate mood/affect, intact judgment & insight, memory intact, cooperative Plan Activity: other (No sex, no driving. Ambulate ~1mile on your property a day. Void frequently, use you incentive spirometer every hour while awake. ) Weight Bearing Status: Full Weight Bearing Diet: low fat, low cholesterol, low salt (Eat small meals frequently) Wound: open to air, keep clean and dry (You may shower) Additional Instructions: Make an appointment with your Lathe Sander immediately Follow up with: FILI STOVER JR, MD [Primary Care Provider] - 7 Days BALAJI GARCES MD [Staff Physician] - 7 Days
== END 2019-04-06 16:00 | disposition home or self-care (01) ==
LOC: OR 06:07 → OB 11:06 → 4A 04-06 00:25
PROVIDERS: ADMIT Obstetrics & Gynecology; ATTEND Obstetrics & Gynecology
DX: R10.2 Pelvic and perineal pain (principal); N94.10 Unspecified dyspareunia; N94.6 Dysmenorrhea, unspecified; D25.9 Leiomyoma of uterus, unspecified; Z90.49 Acquired absence of other specified parts of digestive tract
CPT/HCPCS: 36415; 58562; 58571; 64450; 81025; 85014; 85018; 85025; 86850; 86900; 86901; 88302; 88305; 88307; 93005; 93010; 96365; 96366; 96375; 96376; A4217; C9113; G0378; J0690; J1100; J1170; J1885; J2250; J2270; J2370; J2405; J2704; J2710; J3010; J7120; Q9968; S2900